=== PATIENT | female | born 1960 | race African-American/Black ===

== ENCOUNTER → 2016-04-26 | Outpatient (CLI) | payer BC ==
[2016-04-26 15:30] LABS: CH 31.7; HCT 38.1 % (34.0-46.0); HDW 2.55; HGB 12.6 gm/dL (11.4-16.0); MCH 30.9 pg (25.0-35.0); MCHC 32.9 g/dL (31.0-37.0); MCV 93.7 fL (80.0-100.0); RBC 4.07 m/uL (3.80-5.40); RDW 13.1 % (11.5-15.5); WBC 5.2 k/uL (3.8-10.6)
[2016-04-26 15:40] LABS: Anion Gap 11 mmol/L; Blood Urea Nitrogen 8 mg/dL (7-17); Carbon Dioxide 29 mmol/L (22-30); Chloride 101 mmol/L (98-107); Non-African American GFR(MDRD) >60 (>60 ml/min/1.73 sqM); Potassium 3.3 mmol/L (3.5-5.1); Sodium 141 mmol/L (137-145)
== END | disposition home or self-care (01) ==
LOC: LABPAT 15:10
PROVIDERS: ATTEND Internal Medicine Cardiovascular Disease
DX: Z01.812 Encounter for preprocedural laboratory examination (principal); I20.9 Angina pectoris, unspecified
CPT/HCPCS: 80051; 82565; 84520; 85027

== ENCOUNTER 2016-04-27 11:01 | Day surgery (SDC) | payer BC ==
[2016-04-23 13:10] VITALS: BMI 33.9
[~2016-04-27 11:01] MED LIST: ALPRAZolam 0.25 MG TAB PO PRN; ALPRAZolam 0.5 MG TAB PO PRN; ASPIRIN 325 MG TAB PO STA; ATORVASTATIN 80 MG TAB PO STA; NITROGLYCERIN SL TABS 0.4 MG TAB SUBLINGUAL PRN; SODIUM CHLORIDE 0.9% 1,000 ML in EMPTY BAG 1 BAG IV ONE
[2016-04-27 12:14] VITALS: PULSE 63
[2016-04-27] MEDS ORDERED: MIDAZOLAM 2 MG/2 ML VIAL ONE (12:16)
[2016-04-27] MEDS ORDERED: LIDOCAINE 2% INJ 20 MG/ML (20 ML MDV) ONE (12:16)
[2016-04-27] MEDS ORDERED: fentaNYL (PF) 50 MCG/ML 2 ML AMP ONE (12:17)
[2016-04-27] MEDS ORDERED: diphenhydrAMINE 50 MG/ML 1 ML VIAL ONE (12:17)
[2016-04-27] MEDS ORDERED: IV FLUID CONTINUATION 1,000 ML IV ONE (12:21)
[2016-04-27] MEDS ORDERED: MIDAZOLAM 2 MG/2 ML VIAL IV ONE (12:41)
[2016-04-27] MEDS ORDERED: fentaNYL (PF) 50 MCG/ML 2 ML AMP IV ONE (12:42)
[2016-04-27] MEDS ORDERED: diphenhydrAMINE 50 MG/ML 1 ML VIAL IVP ONE (12:43)
[2016-04-27] MEDS ORDERED: LIDOCAINE 2% INJ 20 MG/ML SQ ONE (12:51)
[2016-04-27] MEDS ORDERED: NITROGLYCERIN SL TABS 0.4 MG TAB SUBLINGUAL ONE ×2 (12:56→12:57)
[2016-04-27] MEDS ORDERED: IOHEXOL 350 MG/ML 100 ML BOTTLE INJ ONE (13:08)
[2016-04-27] MEDS ORDERED: RX INFO: IV CONTRAST WAS GIVEN 1 EACH MISC MISCELLANE PRN (13:15)
[2016-04-27] MEDS ORDERED: SODIUM CHLORIDE 0.9% 1,000 ML IV SCH (15:00)
[2016-04-27 16:25] VITALS: RESP 18
[2016-04-27 17:10] VITALS: BP 124/74; TEMP 98
--- NOTE | 2016-04-27 22:04 | CC ---
DATE OF SERVICE: Mrs. Carpenter is a 56-year-old female who was seen in the office with a history suggestive of recurrent episodes of chest pain and recurrent hospital admissions. Patient was treated medically. She continued to have the chest discomfort with recurrent admissions to the hospital. In view of that, the patient was recommended to have a cardiac catheterization for definitive diagnosis. PROCEDURE: The right groin was prepped and draped in the usual manner and the skin was infiltrated with 2% Xylocaine. The right femoral artery was entered using Seldinger technique. A #6 Macedonian sheath was placed in. Selective coronary angiography was then performed in multiple projections and the left ventriculography was performed. Patient tolerated the procedure well. Sheath was removed. Good hemostasis was achieved with the use of Angio-Seal. HEMODYNAMICS: The left ventricular end-diastolic pressure was 12 mmHg prior to angiography and 16 mmHg post angiography. No gradient was noted across the aortic valve. SELECTIVE CORONARY ANGIOGRAPHY: Left main coronary artery is normal and patent. LAD is a good-caliber blood vessel and gives rise to a good-sized diagonal branch. LAD and its branches are normal. Circumflex coronary artery is non-dominant in distribution and gives rise to the obtuse marginal branch. Circumflex coronary artery and its branches are normal. Right coronary artery is a normal-caliber blood vessel and gives rise to the posterior descending artery. Right coronary artery and its branches are normal. Left ventriculography reveals normal left ventricular systolic function. FINAL IMPRESSION: This study reveals normal coronary arteries. Left ventricular systolic function is normal. RECOMMENDATIONS: Medical treatment.
== END 2016-04-27 18:53 | disposition home or self-care (01) ==
LOC: CATHCVL 11:01 → 3OBS 16:28 → CATHCVL 18:53
PROVIDERS: ATTEND Internal Medicine Cardiovascular Disease
DX: R07.89 Other chest pain (principal); I10 Essential (primary) hypertension; Z79.82 Long term (current) use of aspirin; Z79.899 Other long term (current) drug therapy
CPT/HCPCS: 93458; C1760; C1894; C1769; J2001; J2250; J1200; Q9967; J3010

== ENCOUNTER → 2016-09-10 | Outpatient (CLI) | payer BC ==
[2016-09-10 16:06] LABS: Basophils % (A) 1 %; CH 31.5; CHCM 33.4; Eosinophils # (A) 0.1 k/uL (0-0.7); Eosinophils % (A) 3 %; HDW 2.46; Luc # (Auto) 0.13; Luc % (Auto) 3; Lymphocytes # (A) 1.6 k/uL (1.0-4.8); Lymphocytes % (A) 32 %; MCH 30.9 pg (25.0-35.0); MCHC 32.6 g/dL (31.0-37.0); MCV 94.9 fL (80.0-100.0); Mean Platelet Volume 7.5; Monocytes # (A) 0.4 k/uL (0-1.0); Monocytes % (A) 8 %; Neutrophils # (A) 2.9 k/uL (1.3-7.7); Neutrophils % (A) 55 %; RBC 4.22 m/uL (3.80-5.40); RDW 13.4 % (11.5-15.5); WBC 5.2 k/uL (3.8-10.6)
== END | disposition home or self-care (01) ==
LOC: LABPAT 15:13
PROVIDERS: ATTEND Obstetrics & Gynecology
DX: Z01.812 Encounter for preprocedural laboratory examination (principal)
CPT/HCPCS: 85025

== ENCOUNTER → 2017-02-23 | Outpatient (CLI) | payer BC ==
--- NOTE | 2017-02-23 13:24 | XR ---
EXAMINATION TYPE: XR knee complete LT DATE OF EXAM: 02/23/2017 CLINICAL HISTORY: pain TECHNIQUE: Three views of the left knee are obtained. COMPARISON: None. FINDINGS: There is no acute fracture/dislocation. Moderate patellofemoral joint space narrowing. Phyllis nges of chondromalacia patella. The overlying soft tissue appears unremarkable. IMPRESSION: There is no acute fracture or dislocation ICD 10 NO FRACTURE, INITIAL EVALUATION
--- NOTE | 2017-02-24 20:39 | XR ---
EXAMINATION TYPE: XR calcaneus 2V LT DATE OF EXAM: 02/23/2017 COMPARISON: NONE HISTORY: Pain TECHNIQUE: 2 views of the left os calcis are submitted. FINDINGS: No evidence for fracture or bony lesion. Plantar dorsal calcaneal spurring. IMPRESSION: No fracture or osseous lesion identified.
== END | disposition home or self-care (01) ==
LOC: RADXRMAIN 12:54
PROVIDERS: ATTEND Physician Assistant
DX: M79.672 Pain in left foot (principal); M25.562 Pain in left knee

== ENCOUNTER → 2017-04-19 | Outpatient (CLI) | payer BC ==
--- NOTE | 2017-04-19 10:30 | XR ---
EXAMINATION TYPE: XR foot complete RT DATE OF EXAM: 04/19/2017 CLINICAL HISTORY: Right foot pain after injury TECHNIQUE: Frontal, lateral, and oblique images of the right foot are obtained. COMPARISON: None FINDINGS: There is a nondisplaced transversely oriented, noncomminuted fracture of the distal diaphys is of the fourth proximal phalanx of the right foot. On the frontal image there appears to be some pe riosteal reaction and therefore this could be subacute. No additional fracture is seen. There is mild surrounding soft tissue swelling. Osseous mineralization is within normal limits. No radiopaque fore ign body. IMPRESSION: Nondisplaced transversely oriented fracture of the distal diaphysis of the proximal phala nx of the fourth digit of the right foot. Mild periosteal reaction suggests this may be subacute. Cor relate with point tenderness and clinical history.
== END | disposition home or self-care (01) ==
LOC: RADXRMAIN 09:34
PROVIDERS: ATTEND Physician Assistant
DX: S92.514A Nondisplaced fracture of proximal phalanx of right lesser toe(s), initial encounter for closed fracture (principal)

== ENCOUNTER 2017-07-21 12:19 | Emergency (ER) | payer BC ==
[2017-07-21 13:12] VITALS: RESP 18
[2017-07-21 13:23] LABS: Basophils % (A) 1 %; Eosinophils # (A) 0.1 k/uL (0-0.7); Eosinophils % (A) 2 %; HCT 37.8 % (34.0-46.0); HGB 13.1 gm/dL (11.4-16.0); Lymphocytes # (A) 1.6 k/uL (1.0-4.8); Lymphocytes % (A) 29 %; MCH 31.3 pg (25.0-35.0); MCHC 34.6 g/dL (31.0-37.0); MCV 90.3 fL (80.0-100.0); Mean Platelet Volume 7.3; Monocytes # (A) 0.3 k/uL (0-1.0); Monocytes % (A) 5 %; Neutrophils # (A) 3.3 k/uL (1.3-7.7); Neutrophils % (A) 60 %; Platelet Count 227 k/uL (150-450); RBC 4.19 m/uL (3.80-5.40); RDW 13.1 % (11.5-15.5); WBC 5.4 k/uL (3.8-10.6)
[2017-07-21 13:34] LABS: ALT 38 U/L (9-52); AST 36 U/L (14-36); Albumin 4.4 g/dL (3.5-5.0); Alkaline Phosphatase 114 U/L (38-126); Anion Gap 13 mmol/L; Blood Urea Nitrogen 9 mg/dL (7-17); Carbon Dioxide 28 mmol/L (22-30); Chloride 102 mmol/L (98-107); Glucose 79 mg/dL (74-99); Lipase 102 U/L (23-300); Magnesium 1.9 mg/dL (1.6-2.3); Potassium 3.5 mmol/L (3.5-5.1); Sodium 143 mmol/L (137-145); Total Bilirubin 0.5 mg/dL (0.2-1.3); Total Protein 7.6 g/dL (6.3-8.2)
--- NOTE | 2017-07-21 13:40 | XR ---
EXAMINATION TYPE: XR chest 2V DATE OF EXAM: 07/21/2017 COMPARISON: 02/17/2016 INDICATION: Chest pain left arm pain TECHNIQUE: Frontal and lateral views of the chest are obtained. FINDINGS: The heart size is normal. The pulmonary vasculature is normal. The lungs are clear. IMPRESSION: 1. No acute pulmonary process.
--- NOTE | 2017-07-21 13:47 | ED ---
Extremity Problem HPI - General Chief complaint: Extremity Problem,Nontraumatic Stated complaint: PAIN IN LEG AND CHEST FOLLOWING AIR TRAVEL Time Seen by Provider: 07/21/17 12:36 Source: patient, RN notes reviewed Mode of arrival: wheelchair Limitations: no limitations - History of Present Illness Initial comments: 37-year-old female presented emergency Department with complaints of left leg, thigh pain and arm pain. Patient states since started late Tuesday and Tuesday and she has pain rating for left inner thigh region and radiates up also complains of pain and over her left arm and numbness in her digits 2 through 4 on the left hand. She states is intermittent sometimes it goes away. She states nothing really makes symptoms better or worse. She is concerned as she just flew pain from [place]. She has no history of DVT. She denies any shortness of breath, headache or dizziness. She has a history of hypertension. denies chest pain - Related Data Home Medications Medication Instructions Recorded Confirmed Irbesartan [Avapro] 300 mg PO DAILY 02/10/14 07/21/17 amLODIPine [Norvasc] 10 mg PO DAILY 03/31/15 07/21/17 Multivitamins, Thera [Multivitamin 1 tab PO DAILY 12/18/15 07/21/17 (formulary)] Potassium Chloride [Klor-Con 20] 20 meq PO TID 12/18/15 07/21/17 Ferrous Sulfate [Iron (65 MG 325 mg PO Q48H 01/08/16 07/21/17 Elemental)] Metoprolol Succinate (ER) [Toprol 100 mg PO DAILY 07/21/17 07/21/17 Xl] Allergies Allergy/AdvReac Type Severity Reaction Status Date / Time No Known Allergies Allergy Verified 07/21/17 12:35 Review of Systems ROS Statement: Those systems with pertinent positive or pertinent negative responses have been documented in the HPI. ROS Other: All systems not noted in ROS Statement are negative. Past Medical History Past Medical History: Eye Disorder, GERD/Reflux, Hypertension Additional Past Medical History / Comment(s): hypokalemia, irregular heart beat occasionally, anemia, 2013 had L sided weakness-work up never was conclusive of cause-resolved itself, occasional lower leg/pedal edema, History of Any Multi-Drug Resistant Organisms: None Reported Past Surgical History: Heart Catheterization, Tubal Ligation Additional Past Surgical History / Comment(s): colonoscopies Past Anesthesia/Blood Transfusion Reactions: No Reported Reaction Past Psychological History: No Psychological Hx Reported Smoking Status: Former smoker Past Alcohol Use History: None Reported Past Drug Use History: None Reported - Past Family History Father Family Medical History: Cancer (Throat), Hypertension, Myocardial Infarction ([place] ) Mother Additional Family Medical History / Comment(s): Mother is 94 yrs old and healthy. General Exam Limitations: no limitations General appearance: alert, in no apparent distress Head exam: Present: atraumatic, normocephalic, normal inspection Eye exam: Present: normal appearance, PERRL, EOMI. Absent: scleral icterus, conjunctival injection, periorbital swelling ENT exam: Present: normal exam, normal oropharynx, mucous membranes moist Neck exam: Present: normal inspection, full ROM. Absent: tenderness, meningismus, lymphadenopathy Respiratory exam: Present: normal lung sounds bilaterally. Absent: respiratory distress, wheezes, rales, rhonchi, stridor Cardiovascular Exam: Present: regular rate, normal rhythm, normal heart sounds. Absent: systolic murmur, diastolic murmur, rubs, gallop, clicks GI/Abdominal exam: Present: soft, normal bowel sounds. Absent: distended, tenderness, guarding, rebound, rigid Extremities exam: Present: other (Lower extremity neurovascular intact there is no tenderness to the left leg pupils are equal bilaterally there is no swelling , upper extremities full range of motion neurovascular intact equal strength) Neurological exam: Present: alert, oriented X3, CN II-XII intact, reflexes normal. Absent: motor sensory deficit Skin exam: Present: warm, dry, intact, normal color. Absent: rash Course Vital Signs 07/21/17 07/21/17 07/21/17 12:21 13:11 15:14 Temperature 98.1 F Pulse Rate 59 L 56 L 60 Respiratory 20 18 18 Rate Blood Pressure 164/87 162/77 156/79 O2 Sat by Pulse 99 100 100 Oximetry Medical Decision Making - Medical Decision Making 57-year-old female presented for multiple complaints. Patient has some numbness and tingling to her left hand digits 2 through 4 consistent with carpal tunnel. Patient has no current chest pain from smoke labwork was unremarkable CT, Ultram performed negative for any acute findings. Patient also has a left groin strain. Patient follow-up with PCP tomorrow return for any worsening symptoms. - Lab Data Result diagrams: 07/21/17 13:05 07/21/17 13:05 Lab Results 07/21/17 07/21/17 07/21/17 Range/Units 13:05 13:05 13:05 WBC 5.4 (3.8-10.6) k/uL RBC 4.19 (3.80-5.40) m/uL Hgb 13.1 (11.4-16.0) gm/dL Hct 37.8 (34.0-46.0) % MCV 90.3 (80.0-100.0) fL MCH 31.3 (25.0-35.0) pg MCHC 34.6 (31.0-37.0) g/dL RDW 13.1 (11.5-15.5) % Plt Count 227 (150-450) k/uL Neutrophils % 60 % Lymphocytes % 29 % Monocytes % 5 % Eosinophils % 2 % Basophils % 1 % Neutrophils # 3.3 (1.3-7.7) k/uL Lymphocytes # 1.6 (1.0-4.8) k/uL Monocytes # 0.3 (0-1.0) k/uL Eosinophils # 0.1 (0-0.7) k/uL Basophils # 0.0 (0-0.2) k/uL PT (9.0-12.0) sec INR (<1.2) APTT (22.0-30.0) sec D-Dimer (<0.60) mg/L FEU Sodium 143 (137-145) mmol/L Potassium 3.5 (3.5-5.1) mmol/L Chloride 102 (98-107) mmol/L Carbon Dioxide 28 (22-30) mmol/L Anion Gap 13 mmol/L BUN 9 (7-17) mg/dL Creatinine 0.64 (0.52-1.04) mg/dL Est GFR (CKD-EPI)AfAm >90 (>60 ml/min/1.73 sqM) Est GFR (CKD-EPI)NonAf >90 (>60 ml/min/1.73 sqM) Glucose 79 (74-99) mg/dL Calcium 10.0 (8.4-10.2) mg/dL Magnesium 1.9 (1.6-2.3) mg/dL Total Bilirubin 0.5 (0.2-1.3) mg/dL AST 36 (14-36) U/L ALT 38 (9-52) U/L Alkaline Phosphatase 114 (38-126) U/L Total Creatine Kinase 102 (30-135) U/L CK-MB (CK-2) 0.6 (0.0-2.4) ng/mL CK-MB (CK-2) Rel Index 0.6 Troponin I <0.012 (0.000-0.034) ng/mL Total Protein 7.6 (6.3-8.2) g/dL Albumin 4.4 (3.5-5.0) g/dL Lipase 102 (23-300) U/L / Range/Units 13:05 WBC (3.8-10.6) k/uL RBC (3.80-5.40) m/uL Hgb (11.4-16.0) gm/dL Hct (34.0-46.0) % MCV (80.0-100.0) fL MCH (25.0-35.0) pg MCHC (31.0-37.0) g/dL RDW (11.5-15.5) % Plt Count (150-450) k/uL Neutrophils % % Lymphocytes % % Monocytes % % Eosinophils % % Basophils % % Neutrophils # (1.3-7.7) k/uL Lymphocytes # (1.0-4.8) k/uL Monocytes # (0-1.0) k/uL Eosinophils # (0-0.7) k/uL Basophils # (0-0.2) k/uL PT 9.8 (9.0-12.0) sec INR 1.0 (<1.2) APTT 22.0 (22.0-30.0) sec D-Dimer 0.61 H (<0.60) mg/L FEU Sodium (137-145) mmol/L Potassium (3.5-5.1) mmol/L Chloride (98-107) mmol/L Carbon Dioxide (22-30) mmol/L Anion Gap mmol/L BUN (7-17) mg/dL Creatinine (0.52-1.04) mg/dL Est GFR (CKD-EPI)AfAm (>60 ml/min/1.73 sqM) Est GFR (CKD-EPI)NonAf (>60 ml/min/1.73 sqM) Glucose (74-99) mg/dL Calcium (8.4-10.2) mg/dL Magnesium (1.6-2.3) mg/dL Total Bilirubin (0.2-1.3) mg/dL AST (14-36) U/L ALT (9-52) U/L Alkaline Phosphatase (38-126) U/L Total Creatine Kinase (30-135) U/L CK-MB (CK-2) (0.0-2.4) ng/mL CK-MB (CK-2) Rel Index Troponin I (0.000-0.034) ng/mL Total Protein (6.3-8.2) g/dL Albumin (3.5-5.0) g/dL Lipase (23-300) U/L Disposition Clinical Impression: Groin strain, Carpal tunnel syndrome Disposition: HOME SELF-CARE Condition: Stable Instructions: Musculoskeletal Pain (ED) Additional Instructions: Please return to the Emergency Department if symptoms worsen or any other concerns. Is patient prescribed a controlled substance at d/c from ED?: No Referrals: Danilo Ryder DO [Primary Care Provider] - 1-2 days
[2017-07-21 13:48] LABS: Prothrombin Time 9.8 sec (9.0-12.0)
[2017-07-21 13:49] LABS: Creatine Kinase 102 U/L (30-135)
[2017-07-21 13:55] LABS: D-Dimer 0.61 mg/L FEU (<0.60)
[2017-07-21 14:02] LABS: Creatine Kinase MB 0.6 ng/mL (0.0-2.4); Troponin I <0.012 ng/mL (0.000-0.034)
--- NOTE | 2017-07-21 14:30 | US ---
EXAMINATION TYPE: US venous doppler duplex LE LT DATE OF EXAM: 07/21/2017 2:26 PM COMPARISON: none CLINICAL HISTORY: Pain. Recent travel to [place]. Groin/upper thigh pain. No swelling. No hx o f DVT. Not on any blood thinners. SIDE PERFORMED: Left TECHNIQUE: The lower extremity deep venous system is examined utilizing real time linear array sonog khadra with graded compression, doppler sonography and color-flow sonography. VESSELS IMAGED: External Iliac Vein (EIV) Common Femoral Vein Deep Femoral Vein Greater Saphenous Vein * Femoral Vein Popliteal Vein Small Saphenous Vein * Proximal Calf Veins (* superficial vessels) Grayscale, color doppler, spectral doppler imaging performed of the deep veins of the left lower extr emity. There is normal flow, compressibility, vascular waveforms. Left Leg: Negative for DVT IMPRESSION: No sonographic evidence of deep venous thrombosis within the left lower extremity.
[2017-07-21] MEDS ORDERED: RX INFO: IV CONTRAST WAS GIVEN 1 EACH MISC MISCELLANE PRN (14:49)
--- NOTE | 2017-07-21 15:42 | CT ---
CT CHEST FOR PULMONARY EMBOLISM. EXAMINATION TYPE: CT chest angio for PE DATE OF EXAM: 07/21/2017 INDICATION: Pain in chest and leg following air travel CT DLP: 533 mGycm, Automated exposure control for dose reduction was used. CONTRAST: Patient injected with 100 ml mL of Isovue 370. COMPARISON: NONE TECHNIQUE: CT of the chest is performed on a spiral scan at 2 mm thick sections. Study is performed with intravenous contrast timed for evaluation for pulmonary embolism. This will limit additional po rtions of the evaluation. 3-D MIP images reconstructed by the technologist are reviewed on the compu ter in the coronal and sagittal planes. FINDINGS: No persistent filling defects are evident to suggest an acute pulmonary embolism. No mediastinal or hilar adenopathy enlarged by CT criteria is evident. The ascending aorta diameter at the level of the main pulmonary artery is 3.7 cm. The main pulmonary artery diameter at the bifur cation is 2.5 cm. Lung windows are clear. Limited CT section through the upper abdomen are unremarkable. IMPRESSIONS: 1. No acute pulmonary embolism.
[2017-07-21 16:21] VITALS: BP 142/77; PULSE 59; TEMP 98.7
== END 2017-07-21 16:19 | disposition home or self-care (01) ==
LOC: EC 12:19
DX: S39.011A Strain of muscle, fascia and tendon of abdomen, initial encounter (principal); G56.02 Carpal tunnel syndrome, left upper limb; I10 Essential (primary) hypertension; D64.9 Anemia, unspecified; Z95.5 Presence of coronary angioplasty implant and graft; Z79.899 Other long term (current) drug therapy; Z87.891 Personal history of nicotine dependence; X58.XXXA Exposure to other specified factors, initial encounter
CPT/HCPCS: 99284; 36415; 93005; 85379; 80053; 82550; 82553; 83690; 83735; 84484; 85025; 85610; 85730; 71046; 93971; 71275; Q9967

== ENCOUNTER → 2018-05-31 | Outpatient (CLI) | payer BC ==
--- NOTE | 2018-05-31 15:26 | XR ---
EXAMINATION TYPE: XR toes RT DATE OF EXAM: 05/31/2018 COMPARISON: None HISTORY: Great toe contusion 3 weeks prior TECHNIQUE: 3 views right great toe FINDINGS: Some hallux valgus deformity appears to be present. Joint spaces are preserved. No acute fr actures are evident. The soft tissues appear normal. IMPRESSION: 1. No acute osseous abnormality right great toe.
== END | disposition home or self-care (01) ==
LOC: RADXRMAIN 13:30
PROVIDERS: ATTEND Family Medicine
DX: M79.674 Pain in right toe(s) (principal)

== ENCOUNTER → 2018-07-27 | Outpatient (CLI) | payer BC ==
--- NOTE | 2018-07-28 12:33 | MM ---
Reason for exam: screening (asymptomatic). Last mammogram was performed 2 years and 7 months ago. History: Patient is postmenopausal. Took hormonal contraceptives for 1 year. Physical Findings: A clinical breast exam by your physician is recommended on an annual basis and results should be correlated with mammographic findings. MG 3D Screening Mammo W/Cad Bilateral CC and MLO view(s) were taken. Prior study comparison: December 24, 2015, bilateral MG screening mammo w CAD. May 07, 2011, bilateral digital screening mammo w/CAD. The breast tissue is heterogeneously dense. This may lower the sensitivity of mammography. There is no discrete abnormality. No significant changes when compared with prior studies. ASSESSMENT: Negative, BI-RAD 1 RECOMMENDATION: Routine screening mammogram of both breasts in 1 year.
== END | disposition home or self-care (01) ==
LOC: RADMAMWWP 10:12
PROVIDERS: ATTEND Family Medicine
DX: Z12.31 Encounter for screening mammogram for malignant neoplasm of breast (principal)
CPT/HCPCS: 77063; 77067

== ENCOUNTER 2018-10-09 02:28 | Emergency (ER) | payer BC ==
[2018-10-09] MEDS ORDERED: SODIUM CHLORIDE 0.9% 1,000 ML IV STA ×2 (03:06)
[2018-10-09] MEDS ORDERED: KETOROLAC 30 MG/ML 1 ML VIAL IVP STA (03:32)
--- NOTE | 2018-10-09 03:34 | ED ---
Recheck HPI - General Source: patient, RN notes reviewed, old records reviewed Mode of arrival: ambulatory Limitations: no limitations <Bre Rousseau - Last Filed: 10/09/18 04:24> <Taylor Alicia - Last Filed: 10/09/18 05:44> - General Chief Complaint: Recheck/Abnormal Lab/Rx Stated Complaint: Hypertension Leg Cramping Time Seen by Provider: 10/09/18 02:41 - History of Present Illness Initial Comments: Patient is a pleasant 58-year-old female who presents emergency department today with complaints of onset of lower leg cramping radiating up her body, and complained of some heart fluttering sensations this evening around 1 AM. She states that on Tuesday afternoon after sitting in the sun she's stated that she felt that she was overheated. She stated that after drinking water and resting she's seemed to feel well. She denies any syncopal episodes. She denies any specific chest pain at this time. She states that she had just some episodes of lightheadedness at that time. Patient relates that she has had no fevers or chills, nausea or vomiting. She does report a history of high blood pressure, and that has been persistent for the past few days. She was concerned with the dizzy episodes, and cramping legs as well as the hypertension that she should return to emergency department for evaluation. (Bre Rousseau) - Related Data Home Medications Medication Instructions Recorded Confirmed Irbesartan [Avapro] 300 mg PO DAILY 02/10/14 07/21/17 amLODIPine [Norvasc] 10 mg PO DAILY 03/31/15 07/21/17 Multivitamins, Thera [Multivitamin 1 tab PO DAILY 12/18/15 07/21/17 (formulary)] Potassium Chloride [Klor-Con 20] 20 meq PO TID 12/18/15 07/21/17 Ferrous Sulfate [Iron (65 MG 325 mg PO Q48H 01/08/16 07/21/17 Elemental)] Metoprolol Succinate (ER) [Toprol 100 mg PO DAILY 07/21/17 07/21/17 Xl] Allergies Allergy/AdvReac Type Severity Reaction Status Date / Time No Known Allergies Allergy Verified 10/09/18 02:35 Review of Systems ROS Other: All systems not noted in ROS Statement are negative. <Bre Rousseau - Last Filed: 10/09/18 04:24> ROS Other: All systems not noted in ROS Statement are negative. <Taylor Alicia Caroline - Last Filed: 10/09/18 05:44> ROS Statement: Those systems with pertinent positive or pertinent negative responses have been documented in the HPI. Past Medical History Past Medical History: Eye Disorder, GERD/Reflux, Hypertension Additional Past Medical History / Comment(s): hypokalemia, irregular heart beat occasionally, anemia, 2013 had L sided weakness-work up never was conclusive of cause-resolved itself, occasional lower leg/pedal edema, History of Any Multi-Drug Resistant Organisms: None Reported Past Surgical History: Heart Catheterization, Tubal Ligation, Uterine Ablation Additional Past Surgical History / Comment(s): colonoscopies, Past Anesthesia/Blood Transfusion Reactions: No Reported Reaction Past Psychological History: No Psychological Hx Reported Smoking Status: Former smoker Past Alcohol Use History: None Reported Past Drug Use History: None Reported - Past Family History Father Family Medical History: Cancer (Throat), Hypertension, Myocardial Infarction ([place]) Mother Additional Family Medical History / Comment(s): Mother is 94 yrs old and healthy . <Bre Rousseau - Last Filed: 10/09/18 04:24> General Exam Limitations: no limitations General appearance: alert, in no apparent distress Head exam: Present: atraumatic, normocephalic, normal inspection Eye exam: Present: normal appearance, PERRL, EOMI. Absent: scleral icterus, conjunctival injection, periorbital swelling ENT exam: Present: normal exam, mucous membranes moist Neck exam: Present: normal inspection. Absent: tenderness, meningismus, lymphadenopathy Respiratory exam: Present: normal lung sounds bilaterally. Absent: respiratory distress, wheezes, rales, rhonchi, stridor Cardiovascular Exam: Present: regular rate, normal rhythm, normal heart sounds. Absent: systolic murmur, diastolic murmur, rubs, gallop, clicks GI/Abdominal exam: Present: soft, normal bowel sounds. Absent: distended, tenderness, guarding, rebound, rigid Extremities exam: Present: normal inspection, full ROM, normal capillary refill. Absent: tenderness, pedal edema, joint swelling, calf tenderness Back exam: Present: normal inspection Neurological exam: Present: alert, oriented X3, CN II-XII intact Psychiatric exam: Present: normal affect, normal mood Skin exam: Present: warm, dry, intact, normal color. Absent: rash <Bre Rousseau - Last Filed: 10/09/18 04:24> - General Exam Comments Initial Comments: This is a 58-year-old female. Alert and oriented 3. No distress. (Bre Rousseau) Course Vital Signs 10/09/18 10/09/18 10/09/18 02:29 03:55 05:07 Temperature 98.2 F Pulse Rate 78 62 59 L Respiratory 18 18 15 Rate Blood Pressure 171/103 176/107 142/88 O2 Sat by Pulse 99 100 Oximetry Medical Decision Making - Lab Data Result diagrams: 10/09/18 03:17 10/09/18 03:17 Interpretation: no acute changes - Radiology Data Radiology results: report reviewed <Bre Rousseau - Last Filed: 10/09/18 04:24> - Lab Data Result diagrams: 10/09/18 03:17 10/09/18 03:17 <Taylor Alicia - Last Filed: 10/09/18 05:44> - Medical Decision Making Patient care was signed out to me by Bre GREWAL, patient presented with leg cramping faintness lightheadedness and palpitations. Patient was concerned she was having some dehydration or heat stroke. Patient was found to be hypertensive and was given labetalol. Upon reevaluation the patient has been ambulatory around the emergency department she is feeling much better she has received IV fluids her blood pressure has improved significantly. I asked the patient if she has home antihypertensives and she admits that she ran out on Tue and that when her went to the pharmacy on Tuesday it was closed but she will be able to get her medications tonight. Given the patient's age and risk factors including hypertension and obesity. Offered to place the patient in observation for further evaluation by cardiology however patient declined she would prefer to be discharged home at this time for outpatient follow-up. All questions pertaining care were answered the best my ability return parameters were discussed patient was discharged home in stable condition. (Taylor Alicia) - Lab Data Lab Results 10/09/18 10/09/18 10/09/18 Range/Units 03:17 03:17 03:17 WBC 6.2 (3.8-10.6) k/uL RBC 4.20 (3.80-5.40) m/uL Hgb 12.9 (11.4-16.0) gm/dL Hct 37.5 (34.0-46.0) % MCV 89.4 (80.0-100.0) fL MCH 30.8 (25.0-35.0) pg MCHC 34.5 (31.0-37.0) g/dL RDW 13.4 (11.5-15.5) % Plt Count 242 (150-450) k/uL Neutrophils % 56 % Lymphocytes % 32 % Monocytes % 7 % Eosinophils % 3 % Basophils % 1 % Neutrophils # 3.5 (1.3-7.7) k/uL Lymphocytes # 2.0 (1.0-4.8) k/uL Monocytes # 0.4 (0-1.0) k/uL Eosinophils # 0.2 (0-0.7) k/uL Basophils # 0.1 (0-0.2) k/uL PT 9.6 (9.0-12.0) sec INR 0.9 (<1.2) APTT 23.1 (22.0-30.0) sec D-Dimer 0.58 (<0.60) mg/L FEU Sodium 140 (137-145) mmol/L Potassium 3.1 L (3.5-5.1) mmol/L Chloride 104 (98-107) mmol/L Carbon Dioxide 28 (22-30) mmol/L Anion Gap 8 mmol/L BUN 9 (7-17) mg/dL Creatinine 0.55 (0.52-1.04) mg/dL Est GFR (CKD-EPI)AfAm >90 (>60 ml/min/1.73 sqM) Est GFR (CKD-EPI)NonAf >90 (>60 ml/min/1.73 sqM) Glucose 102 H (74-99) mg/dL Calcium 9.8 (8.4-10.2) mg/dL Magnesium 1.9 (1.6-2.3) mg/dL Total Bilirubin 0.3 (0.2-1.3) mg/dL AST 28 (14-36) U/L ALT 32 (9-52) U/L Alkaline Phosphatase 120 (38-126) U/L Troponin I (0.000-0.034) ng/mL NT-Pro-B Natriuret Pep pg/mL Total Protein 7.7 (6.3-8.2) g/dL Albumin 4.4 (3.5-5.0) g/dL Amylase 63 (30-110) U/L 10/09/18 10/09/18 Range/Units 03:17 03:17 WBC (3.8-10.6) k/uL RBC (3.80-5.40) m/uL Hgb (11.4-16.0) gm/dL Hct (34.0-46.0) % MCV (80.0-100.0) fL MCH (25.0-35.0) pg MCHC (31.0-37.0) g/dL RDW (11.5-15.5) % Plt Count (150-450) k/uL Neutrophils % % Lymphocytes % % Monocytes % % Eosinophils % % Basophils % % Neutrophils # (1.3-7.7) k/uL Lymphocytes # (1.0-4.8) k/uL Monocytes # (0-1.0) k/uL Eosinophils # (0-0.7) k/uL Basophils # (0-0.2) k/uL PT (9.0-12.0) sec INR (<1.2) APTT (22.0-30.0) sec D-Dimer (<0.60) mg/L FEU Sodium (137-145) mmol/L Potassium (3.5-5.1) mmol/L Chloride (98-107) mmol/L Carbon Dioxide (22-30) mmol/L Anion Gap mmol/L BUN (7-17) mg/dL Creatinine (0.52-1.04) mg/dL Est GFR (CKD-EPI)AfAm (>60 ml/min/1.73 sqM) Est GFR (CKD-EPI)NonAf (>60 ml/min/1.73 sqM) Glucose (74-99) mg/dL Calcium (8.4-10.2) mg/dL Magnesium (1.6-2.3) mg/dL Total Bilirubin (0.2-1.3) mg/dL AST (14-36) U/L ALT (9-52) U/L Alkaline Phosphatase (38-126) U/L Troponin I <0.012 (0.000-0.034) ng/mL NT-Pro-B Natriuret Pep 35 pg/mL Total Protein (6.3-8.2) g/dL Albumin (3.5-5.0) g/dL Amylase (30-110) U/L - Radiology Data EKG shows normal sinus rhythm with possible left atrial enlargement. N onspecific T-wave abnormality. Abnormal EKG. Ventricular rate of 75 beats were minute. DC interval is 192 ms. QRS duration is 86 ms. QT QTC 398/444 ms. Chest x-ray is negative for any acute cardiopulmonary process. (Bre Rousseau) Disposition <Bre Rousseau - Last Filed: 10/09/18 04:24> Is patient prescribed a controlled substance at d/c from ED?: No <Taylor Alicia - Last Filed: 10/09/18 05:44> Clinical Impression: Hypokalemia, Hypertension, Palpitations Disposition: HOME SELF-CARE Condition: Stable Referrals: Danilo Ryder DO [Primary Care Provider] - 1-2 days
[2018-10-09 03:37] LABS: Basophils # (A) 0.1 k/uL (0-0.2); Basophils % (A) 1 %; Eosinophils # (A) 0.2 k/uL (0-0.7); Eosinophils % (A) 3 %; HCT 37.5 % (34.0-46.0); HGB 12.9 gm/dL (11.4-16.0); Lymphocytes % (A) 32 %; MCH 30.8 pg (25.0-35.0); MCHC 34.5 g/dL (31.0-37.0); MCV 89.4 fL (80.0-100.0); Mean Platelet Volume 7.6; Monocytes # (A) 0.4 k/uL (0-1.0); Monocytes % (A) 7 %; Neutrophils # (A) 3.5 k/uL (1.3-7.7); Neutrophils % (A) 56 %; Platelet Count 242 k/uL (150-450); RDW 13.4 % (11.5-15.5); WBC 6.2 k/uL (3.8-10.6)
--- NOTE | 2018-10-09 03:43 | XR ---
EXAM: XR Chest, 2 Views CLINICAL HISTORY: ITS.REASON XR Reason: Chest Pain TECHNIQUE: Frontal and lateral views of the chest. COMPARISON: 07/21/17 FINDINGS: Lungs: No consolidation or mass. Pleural space: No effusion. Heart: No cardiomegaly. Mediastinum: Unremarkable. Bones/joints: No acute findings. IMPRESSION: No acute cardiopulmonary process.
[2018-10-09 03:52] LABS: D-Dimer 0.58 mg/L FEU (<0.60); INR 0.9 (<1.2); Partial Thromboplastin Time 23.1 sec (22.0-30.0); Prothrombin Time 9.6 sec (9.0-12.0)
[2018-10-09 03:59] LABS: ALT 32 U/L (9-52); AST 28 U/L (14-36); African American GFR (CKD) >90 (>60 ml/min/1.73 sqM); Albumin 4.4 g/dL (3.5-5.0); Alkaline Phosphatase 120 U/L (38-126); Amylase 63 U/L (30-110); Anion Gap 8 mmol/L; Blood Urea Nitrogen 9 mg/dL (7-17); Calcium 9.8 mg/dL (8.4-10.2); Carbon Dioxide 28 mmol/L (22-30); Chloride 104 mmol/L (98-107); Glucose 102 mg/dL (74-99); Magnesium 1.9 mg/dL (1.6-2.3); Potassium 3.1 mmol/L (3.5-5.1); Sodium 140 mmol/L (137-145); Total Bilirubin 0.3 mg/dL (0.2-1.3); Total Protein 7.7 g/dL (6.3-8.2)
[2018-10-09] MEDS ORDERED: LABETALOL SYRINGE 5 MG/ML IVP STA (04:06)
[2018-10-09] MEDS ORDERED: POTASSIUM CHLORIDE ER 20 MEQ TAB.ER PO STA (05:37)
[2018-10-09 05:44] VITALS: BP 136/86; PULSE 66; RESP 14; TEMP 98.1
== END 2018-10-09 05:55 | disposition home or self-care (01) ==
LOC: EC 02:28
DX: E87.6 Hypokalemia (principal); I10 Essential (primary) hypertension; D64.9 Anemia, unspecified; Z95.818 Presence of other cardiac implants and grafts; Z87.891 Personal history of nicotine dependence; Z79.899 Other long term (current) drug therapy; Z53.29 Procedure and treatment not carried out because of patient's decision for other reasons
CPT/HCPCS: 36415; 93005; 85379; 83880; 80053; 82150; 83735; 84484; 85025; 85610; 85730; 71046; 99284; 96374; 96375; 96361 ×2; J1885

== ENCOUNTER 2019-03-01 20:19 | Emergency (ER) | payer BC ==
[2019-03-01 20:30] VITALS: RESP 16
[2019-03-01] MEDS ORDERED: ceFAZolin 1,000 MG VIAL (IM USE) IM STA (21:08)
[2019-03-01] MEDS ORDERED: LIDOCAINE 1% INJ 10MG/ML (20 ML MDV) SQ ONE (21:27)
[2019-03-01] MEDS ORDERED: HYDROcodone/APAP 5-325MG 1 EACH TAB PO STA (21:27)
[2019-03-01 22:58] VITALS: BP 161/92; PULSE 78; TEMP 97.9
--- NOTE | 2019-03-01 23:04 | ED ---
General Adult HPI - General Chief complaint: Wound/Laceration Stated complaint: Hand injury, open fracture Time Seen by Provider: 03/01/19 21:06 Source: patient, RN notes reviewed Mode of arrival: ambulatory Limitations: no limitations - History of Present Illness Initial comments: 59-year-old female presents to the emergency department for chief light of laceration of the right third digit. Happened about 2 hours prior to arrival. Patient had initially gone to an urgent care and was told she had an open fracture and to come to the emergency department. Patient states that she closed her finger in a car door. States her tetanus is up-to-date. Denies any injuries more proximally.Patient has no other complaints at this time including shortness of breath, chest pain, abdominal pain, nausea or vomiting, headache, or visual changes. - Related Data Home Medications Medication Instructions Recorded Confirmed Irbesartan [Avapro] 300 mg PO DAILY 02/10/14 07/21/17 amLODIPine [Norvasc] 10 mg PO DAILY 03/31/15 07/21/17 Multivitamins, Thera [Multivitamin 1 tab PO DAILY 12/18/15 07/21/17 (formulary)] Potassium Chloride [Klor-Con 20] 20 meq PO TID 12/18/15 07/21/17 Ferrous Sulfate [Iron (65 MG 325 mg PO Q48H 01/08/16 07/21/17 Elemental)] Metoprolol Succinate (ER) [Toprol 100 mg PO DAILY 07/21/17 07/21/17 Xl] Previous Rx's Medication Instructions Recorded Cephalexin [Keflex] 500 mg PO Q6HR 7 Days #28 cap 03/01/19 Allergies Allergy/AdvReac Type Severity Reaction Status Date / Time No Known Allergies Allergy Verified 03/01/19 20:28 Review of Systems ROS Statement: Those systems with pertinent positive or pertinent negative responses have been documented in the HPI. ROS Other: All systems not noted in ROS Statement are negative. Past Medical History Past Medical History: Eye Disorder, GERD/Reflux, Hypertension Additional Past Medical History / Comment(s): hypokalemia, irregular heart beat occasionally, anemia, 2013 had L sided weakness-work up never was conclusive of cause-resolved itself, occasional lower leg/pedal edema, History of Any Multi-Drug Resistant Organisms: None Reported Past Surgical History: Heart Catheterization, Tubal Ligation, Uterine Ablation Additional Past Surgical History / Comment(s): colonoscopies, Past Anesthesia/Blood Transfusion Reactions: No Reported Reaction Past Psychological History: No Psychological Hx Reported Smoking Status: Former smoker Past Alcohol Use History: None Reported Past Drug Use History: None Reported - Past Family History Father Family Medical History: Cancer (Throat), Hypertension, Myocardial Infarction ([place]) Mother Additional Family Medical History / Comment(s): Mother is 94 yrs old and healthy. General Exam Limitations: no limitations General appearance: alert, in no apparent distress Head exam: Present: atraumatic, normocephalic, normal inspection Eye exam: Present: normal appearance, PERRL, EOMI. Absent: scleral icterus, conjunctival injection ENT exam: Present: normal exam, mucous membranes moist Neck exam: Present: normal inspection. Absent: tenderness, meningismus, lymphadenopathy Respiratory exam: Present: normal lung sounds bilaterally. Absent: respiratory distress, wheezes, rales, rhonchi, stridor Cardiovascular Exam: Present: regular rate, normal rhythm, normal heart sounds. Absent: systolic murmur, diastolic murmur, rubs, gallop, clicks Extremities exam: Present: full ROM (Full range of motion of the right third digit including the DIP and PIP joints.), tenderness (Tenderness over the distal phalanx of the right third digit.), normal capillary refill (Capillary refill less than 2 seconds in the right third digit.), other (Patient has laceration noted along the proximal nailbed of the right third digit. This did fracture the nail.). Absent: pedal edema, joint swelling, calf tenderness Course Vital Signs 03/01/19 03/01/19 20:26 22:57 Temperature 98.1 F 97.9 F Pulse Rate 73 78 Respiratory 16 16 Rate Blood Pressure 145/91 161/92 O2 Sat by Pulse 98 98 Oximetry Procedures - Laceration Laceration #1 Consent Obtained: verbal consent Indication: laceration Site: hand Size (cm): 1 Description: linear Depth: simple, single layer Anesthetic Used: lidocaine 1% Anesthesia Technique: nerve block Amount (mls): 4 Pre-repair: wound explored, irrigated extensively (With 1 L sterile water as well as saline pressure irrigation) Type of Sutures: nylon Size of Sutures: 5-0 Number of Sutures: 2 Technique: simple, interrupted (1-2 placed through the nail and into the nail bed. One suture placed along the lateral aspect of the distal phalanx) Patient Tolerated Procedure: well, no complications Medical Decision Making - Medical Decision Making Outside x-rays were reviewed and this does show fracture of the distal phalanx. Dr. Harvey also reviewed this x-ray. Wound was cleaned thoroughly with sterile water irrigation as well as saline pressure irrigation. Nail is fractured. Therefore distal nail was removed. Proximal nail remained intact. One suture was used to suture through the nail and into the nail bed to repair this nail bed laceration. Another suture was placed laterally along the distal phalanx. Patient was given IM Ancef. Tetanus is up-to-date. Nonstick gauze was applied and wound was prepped. She was given a splint to immobilize this. Patient's pain was controlled here in the emergency department. She was prescribed Keflex to prevent infection giving that this is possibly an open fracture though I cannot visualize the bone through the wound. Patient will follow-up with orthopedics. She will return if she has any worsening symptoms. Disposition Clinical Impression: Laceration, Fracture of distal phalanx of finger of right hand Disposition: HOME SELF-CARE Condition: Good Instructions (If sedation given, give patient instructions): Care For Your Stitches (ED), Laceration (ED), Finger Fracture (ED) Additional Instructions: Please take Motrin and Tylenol for pain. Take Tylenol 3 if pain is severe but do not drive or operate machinery while taking this. Take antibiotic as directed starting tomorrow. This was prescribed to [facility] in the hospital. Rest ice and elevate the finger. Monitor for signs infection such as spreading or streaking redness, drainage or fever and return if these occur. Return if you have any other worsening symptoms. Otherwise call orthopedics tomorrow to schedule an appointment. Prescriptions: Cephalexin [Keflex] 500 mg PO Q6HR 7 Days #28 cap Is patient prescribed a controlled substance at d/c from ED?: No Referrals: Danilo Ryder DO [Primary Care Provider] - 1-2 days Andrei Still DO [Medical Doctor] - 1-2 days Time of Disposition: 23:02
[2019-03-01] MEDS ORDERED: ACET/COD 300 MG/30 MG STARTER PACK 6 TAB BTL PO STA (23:08)
== END 2019-03-01 23:11 | disposition home or self-care (01) ==
LOC: EC 20:19
DX: S62.662B Nondisplaced fracture of distal phalanx of right middle finger, initial encounter for open fracture (principal); I10 Essential (primary) hypertension; Z79.899 Other long term (current) drug therapy; Z87.891 Personal history of nicotine dependence; W23.0XXA Caught, crushed, jammed, or pinched between moving objects, initial encounter
CPT/HCPCS: 99283; 11760; 96372; J0690; J2001

== ENCOUNTER 2021-05-20 17:38 | Emergency (ER) | payer BC ==
[2021-05-20 17:43] VITALS: TEMP 97.8
--- NOTE | 2021-05-20 19:20 | ED ---
General Adult HPI - General Chief complaint: Arrhythmia/Palpitations Stated complaint: heart palpitations Time Seen by Provider: 05/20/21 19:00 Source: patient Mode of arrival: ambulatory Limitations: no limitations - History of Present Illness Initial comments: Dictation was produced using [employer] dictation software. please excuse any grammatical, word or spelling errors. Chief Complaint: 61-year-old female past medical history of hypertension. Hypokalemia presents emergency department for palpitations 5 days History of Present Illness: To 61-year-old female presents emergency department for 5 days of palpitations. Patient states she also has accompanying chest pain. States the pain is severe left anterior chest. States it's a little dull. it does radiate to the jaw. Did not radiate down the extremities. Patient also complaining of palpitations. States that it's more apparent with exertion. Patient has any history of cardiac disease. Patient reports that she usually has low potassium levels causing palpitations. The ROS documented in this emergency department record has been reviewed and confirmed by me. Those systems with pertinent positive or negative responses have been documented in the HPI. All other systems are other negative and/or noncontributory. PHYSICAL EXAM: General Impression: Alert and oriented x3, not in acute distress HEENT: Normocephalic atraumatic, extra-ocular movements intact, pupils equal and reactive to light bilaterally, mucous membranes moist. Cardiovascular: Heart regular rate and rhythm Chest: Able to complete full sentences, no retractions, no tachypnea Abdomen: abdomen soft, non-tender, non-distended, no organomegaly Musculoskeletal: Pulses present and equal in all extremities, no peripheral edema Motor: no focal deficits noted Neurological: CN II-XII grossly intact, no focal motor or sensory deficits noted Skin: Intact with no visualized rashes Psych: Normal affect and mood ED course: 61-year-old well-appearing female with no significant comorbidities p resents emergency department for palpitations and chest pain. Chest pain is atypical with typical features. Signs upon arrival are within acceptable limits. EKG does not show any signs of ischemia or infarction. Laboratory evaluation obtained. CBC, d-dimer, metabolic panel obtained. Potassium 2.8. Patient given oral potassium and parent tell potassium. Initial troponin is negative. Chest x-rays unremarkable. Disposition options were discussed. Patient wants to go home. She is agreeable for second troponin and discharge if her second troponin is negative. She states she will follow-up with her primary care doctor for further care. Serial troponins are negative. Patient reevaluated bedside at 10:55 PM finally stable medical condition. Patient be discharged. EKG interpretation: Ventricular rate 73, sinus rhythm, NC interval 96, QRS 96, QTC 360. No NC prolongation, no QTC prolongation, no ST or T-wave changes noted. EKG compared to 10/09/2018 showing no changes. Overall, this EKG is unremarkable - Related Data Home Medications Medication Instructions Recorded Confirmed amLODIPine [Norvasc] 10 mg PO DAILY 03/31/15 05/20/21 Potassium Chloride [Klor-Con 20] 20 meq PO BID 12/18/15 05/20/21 Metoprolol Succinate (ER) [Toprol 100 mg PO DAILY 07/21/17 05/20/21 Xl] Cinnamon Bark [Cinnamon] 500 mg PO DAILY 05/20/21 05/20/21 Cyanocobalamin (Vitamin B-12) 1,000 mcg PO DAILY 05/20/21 05/20/21 [Vitamin B-12] Magnesium 250 mg PO DAILY 05/20/21 05/20/21 Turmeric Root Extract [Turmeric] 500 mg PO DAILY 05/20/21 05/20/21 Vitamin B Complex 1 cap PO DAILY 05/20/21 05/20/21 Previous Rx's Medication Instructions Recorded Potassium Chloride ER [K-Dur 20] 20 meq PO DAILY 3 Days #3 tab 05/20/21 Allergies Allergy/AdvReac Type Severity Reaction Status Date / Time No Known Allergies Allergy Verified 05/20/21 19:32 Review of Systems ROS Statement: Those systems with pertinent positive or pertinent negative responses have been documented in the HPI. ROS Other: All systems not noted in ROS Statement are negative. Past Medical History Past Medical History: Eye Disorder, GERD/Reflux, Hypertension Additional Past Medical History / Comment(s): hypokalemia, irregular heart beat occasionally, anemia, 2013 had L sided weakness-work up never was conclusive of cause-resolved itself, occasional lower leg/pedal edema, History of Any Multi-Drug Resistant Organisms: None Reported Past Surgical History: Heart Catheterization, Tubal Ligation, Uterine Ablation Additional Past Surgical History / Comment(s): colonoscopies, Past Anesthesia/Blood Transfusion Reactions: No Reported Reaction Past Psychological History: No Psychological Hx Reported Past Alcohol Use History: None Reported Past Drug Use History: None Reported - Past Family History Father Family Medical History: Cancer (Throat), Hypertension, Myocardial Infarction ([place]) Mother Additional Family Medical History / Comment(s): Mother is 94 yrs old and healthy. General Exam Limitations: no limitations Course Vital Signs 05/20/21 05/20/21 05/20/21 17:39 19:24 20:25 Temperature 97.8 F Pulse Rate 80 71 80 Respiratory 18 18 16 Rate Blood Pressure 173/103 161/101 157/105 O2 Sat by Pulse 99 100 98 Oximetry 05/20/21 05/20/21 21:40 22:47 Temperature Pulse Rate 87 69 Respiratory 16 18 Rate Blood Pressure 139/89 139/84 O2 Sat by Pulse 98 97 Oximetry Medical Decision Making - Lab Data Result diagrams: 05/20/21 19:13 05/20/21 19:13 Lab Results 05/20/21 05/20/21 05/20/21 Range/Units 19:13 19:13 19:13 WBC 7.9 (3.8-10.6) k/uL RBC 4.06 (3.80-5.40) m/uL Hgb 12.7 (11.4-16.0) gm/dL Hct 37.7 (34.0-46.0) % MCV 92.8 (80.0-100.0) fL MCH 31.4 (25.0-35.0) pg MCHC 33.8 (31.0-37.0) g/dL RDW 12.8 (11.5-15.5) % Plt Count 259 (150-450) k/uL MPV 7.7 Neutrophils % 64 % Lymphocytes % 25 % Monocytes % 5 % Eosinophils % 3 % Basophils % 1 % Neutrophils # 5.0 (1.3-7.7) k/uL Lymphocytes # 2.0 (1.0-4.8) k/uL Monocytes # 0.4 (0-1.0) k/uL Eosinophils # 0.2 (0-0.7) k/uL Basophils # 0.1 (0-0.2) k/uL D-Dimer (<0.60) mg/L FEU Sodium 140 (137-145) mmol/L Potassium 2.8 L (3.5-5.1) mmol/L Chloride 101 (98-107) mmol/L Carbon Dioxide 30 (22-30) mmol/L Anion Gap 9 mmol/L BUN 10 (7-17) mg/dL Creatinine 0.56 (0.52-1.04) mg/dL Est GFR (CKD-EPI)AfAm >90 (>60 ml/min/1.73 sqM) Est GFR (CKD-EPI)NonAf >90 (>60 ml/min/1.73 sqM) Glucose 112 H (74-99) mg/dL Calcium 9.7 (8.4-10.2) mg/dL Magnesium 1.8 (1.6-2.3) mg/dL Troponin I <0.012 (0.000-0.034) ng/mL 05/20/21 05/20/21 05/20/21 Range/Units 19:13 21:37 22:22 WBC (3.8-10.6) k/uL RBC (3.80-5.40) m/uL Hgb (11.4-16.0) gm/dL Hct (34.0-46.0) % MCV (80.0-100.0) fL MCH (25.0-35.0) pg MCHC (31.0-37.0) g/dL RDW (11.5-15.5) % Plt Count (150-450) k/uL MPV Neutrophils % % Lymphocytes % % Monocytes % % Eosinophils % % Basophils % % Neutrophils # (1.3-7.7) k/uL Lymphocytes # (1.0-4.8) k/uL Monocytes # (0-1.0) k/uL Eosinophils # (0-0.7) k/uL Basophils # (0-0.2) k/uL D-Dimer 0.53 (<0.60) mg/L FEU Sodium (137-145) mmol/L Potassium (3.5-5.1) mmol/L Chloride (98-107) mmol/L Carbon Dioxide (22-30) mmol/L Anion Gap mmol/L BUN (7-17) mg/dL Creatinine (0.52-1.04) mg/dL Est GFR (CKD-EPI)AfAm (>60 ml/min/1.73 sqM) Est GFR (CKD-EPI)NonAf (>60 ml/min/1.73 sqM) Glucose (74-99) mg/dL Calcium (8.4-10.2) mg/dL Magnesium (1.6-2.3) mg/dL Troponin I <0.012 <0.012 (0.000-0.034) ng/mL Disposition Clinical Impression: Chest pain, Palpitations, Hypokalemia Disposition: HOME SELF-CARE Condition: Good Instructions (If sedation given, give patient instructions): Heart Palpitations (ED) Prescriptions: Potassium Chloride ER [K-Dur 20] 20 meq PO DAILY 3 Days #3 tab Is patient prescribed a controlled substance at d/c from ED?: No Referrals: Danilo Ryder DO [Primary Care Provider] - 1-2 days
[2021-05-20 19:23] LABS: Basophils # (A) 0.1 k/uL (0-0.2); Basophils % (A) 1 %; Eosinophils # (A) 0.2 k/uL (0-0.7); Eosinophils % (A) 3 %; HCT 37.7 % (34.0-46.0); HGB 12.7 gm/dL (11.4-16.0); Lymphocytes % (A) 25 %; MCH 31.4 pg (25.0-35.0); MCHC 33.8 g/dL (31.0-37.0); MCV 92.8 fL (80.0-100.0); Mean Platelet Volume 7.7; Monocytes # (A) 0.4 k/uL (0-1.0); Monocytes % (A) 5 %; Neutrophils % (A) 64 %; Platelet Count 259 k/uL (150-450); RBC 4.06 m/uL (3.80-5.40); RDW 12.8 % (11.5-15.5); WBC 7.9 k/uL (3.8-10.6)
[2021-05-20 19:35] LABS: African American GFR (CKD) >90 (>60 ml/min/1.73 sqM); Anion Gap 9 mmol/L; Blood Urea Nitrogen 10 mg/dL (7-17); Calcium 9.7 mg/dL (8.4-10.2); Carbon Dioxide 30 mmol/L (22-30); Chloride 101 mmol/L (98-107); Glucose 112 mg/dL (74-99); Magnesium 1.8 mg/dL (1.6-2.3); Non-African American GFR(CKD) >90 (>60 ml/min/1.73 sqM); Potassium 2.8 mmol/L (3.5-5.1); Sodium 140 mmol/L (137-145)
--- NOTE | 2021-05-20 19:45 | XR ---
EXAMINATION TYPE: XR chest 1V portable DATE OF EXAM: 05/20/2021 COMPARISON: 10/09/2018 HISTORY: Chest pain TECHNIQUE: Single frontal view of the chest is obtained. FINDINGS: There is no focal air space opacity, pleural effusion, or pneumothorax seen. The cardiac silhouette size is within normal limits. The osseous structures are intact. IMPRESSION: No acute process.
[2021-05-20] MEDS ORDERED: POTASSIUM CHLORIDE ER 20 MEQ TAB.ER PO STA (20:06)
[2021-05-20] MEDS ORDERED: POTASSIUM CHLORIDE 20 MEQ in WATER FOR INJECTION 1 100ML.BAG IVPB STA (20:54)
[2021-05-20] MEDS ORDERED: MAG HYDROX/AL HYDROX/SIMETH 30 ML, HYOSCYAMINE ELIXIR 10 ML, LIDOCAINE VISCOUS 2% 10 ML PO STA ×3 (21:44)
[2021-05-21 00:19] VITALS: BP 139/89; PULSE 88; RESP 16
== END 2021-05-21 00:21 | disposition home or self-care (01) ==
LOC: EC 17:38
DX: R00.2 Palpitations (principal); R07.89 Other chest pain; E87.6 Hypokalemia; I10 Essential (primary) hypertension; Z79.899 Other long term (current) drug therapy
CPT/HCPCS: 36415; 93005; 85379; 80048; 83735; 84484; 85025; 71045; 99285; 96360; 96361; J3480

== ENCOUNTER → 2021-07-30 | Outpatient (CLI) | payer BC ==
--- NOTE | 2021-07-30 19:48 | CA ---
Transthoracic Echo Report Name: Benita Carpenter Age: 61 Gender: F : 1960 Exam Date: 07/30/2021 13:06 Exam Location: [facility] Ht (in): 66 Wt (lb): 210 Ordering Physician: Danilo Ryder DO Attending/Referring Phys: Светлана Brown [facility] Crew Leader Gluing Vira Nascimento RDCS Procedure CPT: Indications: R00.2 palpitations Cardiac Hx: Technical Quality: Good Contrast 1: Total Dose (mL): Contrast 2: Total Dose (mL): MEASUREMENTS (Male / Female) Normal Values 2D ECHO LV Diastolic Diameter PLAX 4.3 cm 4.2 - 5.9 / 3.9 - 5.3 cm LV Systolic Diameter PLAX 2.6 cm IVS Diastolic Thickness 1.1 cm 0.6 - 1.0 / 0.6 - 0.9 cm LVPW Diastolic Thickness 1.1 cm 0.6 - 1.0 / 0.6 - 0.9 cm LV Relative Wall Thickness 0.5 RV Internal Dim ED PLAX 3.0 cm LA Systolic Diameter LX 3.9 cm 3.0 - 4.0 / 2.7 - 3.8 cm LA Volume 48.9 cm??? 18 - 58 / 22 - 52 cm??? M-MODE Aortic Root Diameter MM 2.9 cm MV E Point Septal Separation 0.8 cm AV Cusp Separation MM 1.9 cm DOPPLER AV Peak Velocity 121.5 cm/s AV Peak Gradient 5.9 mmHg MV Area PHT 3.0 cm??? Mitral E Point Velocity 70.7 cm/s Mitral A Point Velocity 89.0 cm/s Mitral E to A Ratio 0.8 MV Deceleration Time 252.2 ms MV E' Velocity 3.8 cm/s Mitral E to MV E' Ratio 18.4 TR Peak Velocity 180.8 cm/s TR Peak Gradient 13.1 mmHg Right Ventricular Systolic Press 18.1 mmHg FINDINGS Left Ventricle Left ventricular ejection fraction is estimated at 60-65 %. Left ventricular cavity size normal. Mildly increased left ventricular wall thickness. Right Ventricle Normal right ventricular size. Right ventricular systolic pressure within normal limits. Right Atrium Normal right atrial size. Left Atrium Normal left atrial size. No evidence for an atrial septal defect. Interatrial septal aneurysm. Mitral Valve Trace mitral regurgitation. Aortic Valve Trileaflet aortic valve. No aortic valve stenosis or regurgitation. Tricuspid Valve Trace to mild tricuspid regurgitation. Pulmonic Valve Mild pulmonic regurgitation. Pericardium No pericardial effusion. Aorta Normal size aortic root and proximal ascending aorta. CONCLUSIONS Mild LVH with preserved systolic function Previewed by: Dr. Dave Maciel MD (Electronically Signed) Final Date: 30 Jul 2021 19:46
== END | disposition home or self-care (01) ==
LOC: RADECHMAIN 12:56
PROVIDERS: ATTEND Family Medicine
DX: R00.2 Palpitations (principal)
CPT/HCPCS: 93306

== ENCOUNTER 2021-12-13 21:23 | Emergency (ER) | payer BC ==
[2021-12-13 21:35] VITALS: TEMP 97.8
--- NOTE | 2021-12-13 21:59 | ED ---
General Adult HPI - General Chief complaint: Chest Pain Stated complaint: chest pain Time Seen by Provider: 12/13/21 21:58 Source: patient Mode of arrival: ambulatory Limitations: no limitations - History of Present Illness Initial comments: Patient presents to the ED with her for evaluation. Patient states that she has had right-sided chest pain and palpitations intermittently for the past week or so. Patient also states that she has had "cramping" and "tingling" in her bilateral feet since this morning. Patient states that she is concerned that her potassium level may be low, and she states that she takes potassium supplement pills. Patient admits that her right-sided chest pain is pleuritic at times. Patient denies trauma or injury, radiation of her pain, fever or chills, headache, focal weakness, visual changes, left-sided chest pain, neck/arm/jaw/back pain, dyspnea, cough or cold symptoms, dizziness, syncope, nausea/vomiting/diaphoresis, abdominal pain, diarrhea, dysuria or urinary symptoms, leg or calf swelling, or any other symptoms or complaints. - Related Data Home Medications Medication Instructions Recorded Confirmed amLODIPine [Norvasc] 10 mg PO DAILY 03/31/15 05/20/21 Potassium Chloride [Klor-Con 20] 20 meq PO BID 12/18/15 05/20/21 Metoprolol Succinate (ER) [Toprol 100 mg PO DAILY 07/21/17 05/20/21 Xl] Cinnamon Bark [Cinnamon] 500 mg PO DAILY 05/20/21 05/20/21 Cyanocobalamin (Vitamin B-12) 1,000 mcg PO DAILY 05/20/21 05/20/21 [Vitamin B-12] Magnesium 250 mg PO DAILY 05/20/21 05/20/21 Turmeric Root Extract [Turmeric] 500 mg PO DAILY 05/20/21 05/20/21 Vitamin B Complex 1 cap PO DAILY 05/20/21 05/20/21 Previous Rx's Medication Instructions Recorded Potassium Chloride ER [K-Dur 20] 20 meq PO DAILY 3 Days #3 tab 05/20/21 Allergies Allergy/AdvReac Type Severity Reaction Status Date / Time No Known Allergies Allergy Verified 12/13/21 21:35 Review of Systems ROS Statement: Those systems with pertinent positive or pertinent negative responses have been documented in the HPI. ROS Other: All systems not noted in ROS Statement are negative. Past Medical History Past Medical History: Eye Disorder, GERD/Reflux, Hypertension Additional Past Medical History / Comment(s): hypokalemia, irregular heart beat occasionally, anemia, 2013 had L sided weakness-work up never was conclusive of cause-resolved itself, occasional lower leg/pedal edema, History of Any Multi-Drug Resistant Organisms: None Reported Past Surgical History: Heart Catheterization, Tubal Ligation, Uterine Ablation Additional Past Surgical History / Comment(s): colonoscopies, Past Anesthesia/Blood Transfusion Reactions: No Reported Reaction Past Psychological History: No Psychological Hx Reported Smoking Status: Never smoker Past Alcohol Use History: None Reported Past Drug Use History: None Reported - Past Family History Father Family Medical History: Cancer (Throat), Hypertension, Myocardial Infarction ([place]) Mother Additional Family Medical History / Comment(s): Mother is 94 yrs old and healthy. General Exam Limitations: no limitations General appearance: alert, in no apparent distress Head exam: Present: atraumatic, normocephalic Eye exam: Present: normal appearance, EOMI ENT exam: Present: mucous membranes moist Neck exam: Present: other (Trachea is in midline) Respiratory exam: Present: normal lung sounds bilaterally. Absent: respiratory distress, wheezes, rales, rhonchi, stridor, chest wall tenderness Cardiovascular Exam: Present: regular rate, normal rhythm, normal heart sounds, other (Normal radial pulses bilaterally) GI/Abdominal exam: Present: soft. Absent: distended, tenderness, guarding Extremities exam: Present: other (Negative Homans sign bilaterally). Absent: tenderness, pedal edema, calf tenderness Neurological exam: Present: alert, oriented X3, CN II-XII intact. Absent: motor sensory deficit Psychiatric exam: Present: normal affect, normal mood Skin exam: Present: warm, dry, intact, normal color Course Vital Signs 12/13/21 21:32 Temperature 97.8 F Pulse Rate 82 Respiratory 20 Rate Blood Pressure 171/104 O2 Sat by Pulse 99 Oximetry - Reevaluation(s) Reevaluation #1: 12/14/21 00:44 Patient remains in a normal sinus rhythm on the panel monitor. Patient remains alert and breathing comfortably. Patient denies development of any new symptoms while in the ED. Patient and are aware of the patient's test results, and patient feels comfortable being discharged home at this time. Patient was counseled about chest pain, paresthesias, palpitations and hypokalemia. Patient was clearly explained return and follow-up instructions, and she was instructed to follow up closely with her primary care provider. Patient feels comfortable with this plan. EKG Findings - EKG Comments: EKG Findings:: Sinus rhythm with first-degree AV block, ventricular rate of 68 bpm, no ectopy, LA intervals 212 ms, normal QRS duration, normal QT interval, normal axis, no ST or T-wave abnormality Medical Decision Making - Medical Decision Making Other than mild hypokalemia, the patient's labs are fairly unremarkable. Patient's d-dimer was minimally elevated, but her CT angiography chest is negative for pulmonary embolism. Patient's troponin is negative. Patient's potassium was repleted orally in the ED. Patient states that she takes potassium supplementation at home as well. I do not suspect an emergent medical condition at this time. Patient was instructed to follow up closely with her primary care provider. Patient feels comfortable with this plan. - Lab Data Result diagrams: 12/13/21 22:31 12/13/21 22:31 Lab Results 12/13/21 12/13/21 12/13/21 Range/Units 22:31 22:31 22:31 WBC 8.4 (3.8-10.6) k/uL RBC 4.11 (3.80-5.40) m/uL Hgb 12.4 (11.4-16.0) gm/dL Hct 37.8 (34.0-46.0) % MCV 92.0 (80.0-100.0) fL MCH 30.0 (25.0-35.0) pg MCHC 32.7 (31.0-37.0) g/dL RDW 12.9 (11.5-15.5) % Plt Count 206 (150-450) k/uL MPV 7.8 Neutrophils % 66 % Lymphocytes % 23 % Monocytes % 6 % Eosinophils % 2 % Basophils % 1 % Neutrophils # 5.6 (1.3-7.7) k/uL Lymphocytes # 1.9 (1.0-4.8) k/uL Monocytes # 0.5 (0-1.0) k/uL Eosinophils # 0.1 (0-0.7) k/uL Basophils # 0.1 (0-0.2) k/uL PT 10.5 (9.0-12.0) sec INR 1.0 (<1.2) APTT 23.2 (22.0-30.0) sec D-Dimer (<0.60) mg/L FEU Sodium 138 (137-145) mmol/L Potassium 3.1 L (3.5-5.1) mmol/L Chloride 101 (98-107) mmol/L Carbon Dioxide 25 (22-30) mmol/L Anion Gap 12 mmol/L BUN 14 (7-17) mg/dL Creatinine 0.79 (0.52-1.04) mg/dL Est GFR (CKD-EPI)AfAm >90 (>60 ml/min/1.73 sqM) Est GFR (CKD-EPI)NonAf 82 (>60 ml/min/1.73 sqM) Glucose 98 (74-99) mg/dL Calcium 9.8 (8.4-10.2) mg/dL Magnesium 1.7 (1.6-2.3) mg/dL Total Bilirubin 0.2 (0.2-1.3) mg/dL AST 31 (14-36) U/L ALT 21 (4-34) U/L Alkaline Phosphatase 118 (38-126) U/L Troponin I (0.000-0.034) ng/mL NT-Pro-B Natriuret Pep pg/mL Total Protein 7.5 (6.3-8.2) g/dL Albumin 4.4 (3.5-5.0) g/dL 12/13/21 12/13/21 12/13/21 Range/Units 22:31 22:31 22:31 WBC (3.8-10.6) k/uL RBC (3.80-5.40) m/uL Hgb (11.4-16.0) gm/dL Hct (34.0-46.0) % MCV (80.0-100.0) fL MCH (25.0-35.0) pg MCHC (31.0-37.0) g/dL RDW (11.5-15.5) % Plt Count (150-450) k/uL MPV Neutrophils % % Lymphocytes % % Monocytes % % Eosinophils % % Basophils % % Neutrophils # (1.3-7.7) k/uL Lymphocytes # (1.0-4.8) k/uL Monocytes # (0-1.0) k/uL Eosinophils # (0-0.7) k/uL Basophils # (0-0.2) k/uL PT (9.0-12.0) sec INR (<1.2) APTT (22.0-30.0) sec D-Dimer 0.74 H (<0.60) mg/L FEU Sodium (137-145) mmol/L Potassium (3.5-5.1) mmol/L Chloride (98-107) mmol/L Carbon Dioxide (22-30) mmol/L Anion Gap mmol/L BUN (7-17) mg/dL Creatinine (0.52-1.04) mg/dL Est GFR (CKD-EPI)AfAm (>60 ml/min/1.73 sqM) Est GFR (CKD-EPI)NonAf (>60 ml/min/1.73 sqM) Glucose (74-99) mg/dL Calcium (8.4-10.2) mg/dL Magnesium (1.6-2.3) mg/dL Total Bilirubin (0.2-1.3) mg/dL AST (14-36) U/L ALT (4-34) U/L Alkaline Phosphatase (38-126) U/L Troponin I <0.012 (0.000-0.034) ng/mL NT-Pro-B Natriuret Pep 52 pg/mL Total Protein (6.3-8.2) g/dL Albumin (3.5-5.0) g/dL - Radiology Data Chest x-ray: Normal chest. No change. CT angiography chest with IV contrast: Negative exam. No evidence of pulmonary embolism. No adverse change compared to old exam. Disposition Clinical Impression: Right-sided chest pain, Paresthesias, Palpitations, Hypokalemia Disposition: HOME SELF-CARE Condition: Stable Instructions (If sedation given, give patient instructions): Chest Pain (ED), Heart Palpitations (ED), Hypokalemia (ED), Paresthesia (ED) Additional Instructions: Return to the ER immediately should you develop new or worsening pain, shortness of breath, a fever, feeling dizzy or faint, or new or worsening symptoms. Follow up closely with your primary care provider. Is patient prescribed a controlled substance at d/c from ED?: No Referrals: Danilo Ryder DO [Primary Care Provider] - 1-2 days Time of Disposition: 00:47
--- NOTE | 2021-12-13 23:01 | XR ---
EXAMINATION TYPE: XR chest 2V DATE OF EXAM: 12/13/2021 COMPARISON: 05/20/2021 HISTORY: Chest pain TECHNIQUE: 2 views FINDINGS: Heart and mediastinum are normal. Lungs are clear. Diaphragm is normal. Bony thorax is inta ct. IMPRESSION: Normal chest. No change
[2021-12-13 23:02] LABS: Basophils # (A) 0.1 k/uL (0-0.2); Basophils % (A) 1 %; Eosinophils # (A) 0.1 k/uL (0-0.7); Eosinophils % (A) 2 %; HCT 37.8 % (34.0-46.0); HGB 12.4 gm/dL (11.4-16.0); Lymphocytes # (A) 1.9 k/uL (1.0-4.8); Lymphocytes % (A) 23 %; MCHC 32.7 g/dL (31.0-37.0); Mean Platelet Volume 7.8; Monocytes # (A) 0.5 k/uL (0-1.0); Monocytes % (A) 6 %; Neutrophils # (A) 5.6 k/uL (1.3-7.7); Neutrophils % (A) 66 %; Platelet Count 206 k/uL (150-450); RBC 4.11 m/uL (3.80-5.40); RDW 12.9 % (11.5-15.5); WBC 8.4 k/uL (3.8-10.6)
[2021-12-13 23:07] LABS: Partial Thromboplastin Time 23.2 sec (22.0-30.0); Prothrombin Time 10.5 sec (9.0-12.0)
[2021-12-13 23:38] LABS: ALT 21 U/L (4-34); AST 31 U/L (14-36); African American GFR (CKD) >90 (>60 ml/min/1.73 sqM); Albumin 4.4 g/dL (3.5-5.0); Alkaline Phosphatase 118 U/L (38-126); Anion Gap 12 mmol/L; Blood Urea Nitrogen 14 mg/dL (7-17); Calcium 9.8 mg/dL (8.4-10.2); Carbon Dioxide 25 mmol/L (22-30); Chloride 101 mmol/L (98-107); Glucose 98 mg/dL (74-99); Magnesium 1.7 mg/dL (1.6-2.3); Non-African American GFR(CKD) 82 (>60 ml/min/1.73 sqM); Potassium 3.1 mmol/L (3.5-5.1); Sodium 138 mmol/L (137-145); Total Bilirubin 0.2 mg/dL (0.2-1.3); Total Protein 7.5 g/dL (6.3-8.2)
[2021-12-13] MEDS ORDERED: POTASSIUM CHLORIDE ER 20 MEQ TAB.ER PO STA (23:44)
--- NOTE | 2021-12-14 00:34 | CT ---
EXAMINATION TYPE: CT chest angio for PE DATE OF EXAM: 12/14/2021 COMPARISON: 07/21/2017 HISTORY: rt sided chest pain CT DLP: 535 mGycm Automated exposure control for dose reduction was used. CONTRAST: Performed with IV Contrast, patient injected with 80 mL of Isovue 370. Images obtained from the thoracic inlet to the diaphragm with the IV contrast. There are Three-D post processed images. The lungs are clear of consolidation. No pleural effusion. No evidence of a pulmonary mass. Heart siz e is normal. There are no hilar masses. No mediastinal adenopathy. Thoracic aorta is intact. No aneur ysm. There is no evidence of filling defect in the pulmonary arteries. No pericardial effusion. Upper abdo mariya soft tissues are intact. The thoracic spine is intact. No compression fracture. Sternum is intact. IMPRESSION: Negative exam. No evidence of a pulmonary embolism. No adverse change compared to old exam.
[2021-12-14 01:09] VITALS: BP 152/88; PULSE 68; RESP 18
== END 2021-12-14 01:13 | disposition home or self-care (01) ==
LOC: EC 21:23
DX: R00.2 Palpitations (principal); E87.6 Hypokalemia; R20.2 Paresthesia of skin; I10 Essential (primary) hypertension; Z82.49 Family history of ischemic heart disease and other diseases of the circulatory system
CPT/HCPCS: 36415; 93005; 85379; 83880; 80053; 83735; 84484; 85025; 85610; 85730; 71046; 71275; 99285; Q9967